=== PATIENT | female | born 1960 | race Hispanic/Latino ===

== ENCOUNTER 2020-07-17 06:01 | Inpatient (IN) | payer BC, OTHER ==
[2020-07-15 11:18] LABS: BASOPHILS % 0.5 % (0.0-1.0); EOSINOPHILS # (AUTO) 0.2 (0.0-0.4); EOSINOPHILS % 2.4 % (0.0-6.0); HEMATOCRIT 40.6 % (34.2-44.1); HEMOGLOBIN 13.3 g/dL (12.0-16.0); LYMPHOCYTES # (AUTO) 2.7 (1.0-3.2); LYMPHOCYTES % 30.9 % (18.0-39.1); MEAN CORPUSCULAR HEMOGLOBIN 28.9 pg (28-32); MEAN CORPUSCULAR HGB CONC 32.8 g/dL (31-35); MEAN CORPUSCULAR VOLUME 88.1 fL (81-99); MONOCYTES # (AUTO) 0.5 (0.2-0.8); MONOCYTES % 5.7 % (4.4-11.3); NEUTROPHILS # (AUTO) 5.2 (2.1-6.9); NEUTROPHILS % 60.2 % (38.7-80.0); PLATELET COUNT 299 x10e3/uL (140-360); RED BLOOD COUNT 4.61 x10e6/uL (3.6-5.1); RED CELL DISTRIBUTION WIDTH 13.4 % (11.7-14.4)
[2020-07-15 11:31] LABS: ANION GAP 14.3 mmol/L (8-16); BLOOD UREA NITROGEN 13 mg/dL (7-26); BUN/CREATININE RATIO 19 (6-25); CALCIUM 8.9 mg/dL (8.4-10.2); CARBON DIOXIDE 25 mmol/L (22-29); CHLORIDE 104 mmol/L (98-107); EST GLOMERULAR FILTRATION RATE > 60 ML/MIN (60-); GLUCOSE 111 mg/dL (74-118); POTASSIUM 4.3 mmol/L (3.5-5.1); SODIUM 139 mmol/L (136-145)
[~2020-07-17] VITALS: Ht 152.4 cm; Wt 113.4 kg
[~2020-07-17 06:01] MED LIST: LISINOPRIL2.5 MG PO; METFORMIN HCL500 MG PO; TRICOR145 MG PO; ZETIA10 MG PO
[2020-07-17] MEDS ORDERED: ACETAMINOPHEN 1000 MG/100 ML 100 ML IV ONE (08:26)
[2020-07-17] MEDS ORDERED: LIDOCAINE HCL (LTA) 4 ML SOLN ONE (08:26)
[2020-07-17] MEDS ORDERED: ONDANSETRON HCL INJ 2MG/ML 2ML 2 MG/ML VIAL ONE (11:27)
[2020-07-17] MEDS ORDERED: DEXAMETHASONE SOD PHOS INJ 4 MG/ML VIAL ONE (11:27)
[2020-07-17] MEDS ORDERED: POVIDONE IODINE 0.05% 0.05 % ML PO ONE (11:27)
[2020-07-17] MEDS ORDERED: LIDOCAINE HCL 2% LOCAL INJ 5 ML SDV VIAL INJ ONE (11:27)
[2020-07-17] MEDS ORDERED: LIDOCAINE HCL 2% JELLY 5 ML TUBE ONE (11:27)
[2020-07-17] MEDS ORDERED: ROCURONIUM BROMIDE 10 MG/ML 5ML VIAL IV ONE (11:27)
[2020-07-17] MEDS ORDERED: GLYCOPYRROLATE INJ 0.2 MG/ML VIAL ONE (11:27)
[2020-07-17] MEDS ORDERED: SEVOFLURANE INHAL SOLN 250 ML PEN BTL ONE (11:27)
[2020-07-17] MEDS ORDERED: NEOSTIGMINE 1 MG/ML 10ML VIAL ONE (11:27)
[2020-07-17] MEDS ORDERED: PROPOFOL IV EMULSION 10 MG/ML 20 ML VIAL ONE (11:27)
[2020-07-17] MEDS ORDERED: HYDROMORPHONE 1MG/1ML INJ ONE (12:30)
[2020-07-17] MEDS ORDERED: BUPIVACAINE 0.25% 30ML SDV ONE (13:17)
[2020-07-17] MEDS ORDERED: BUPIVACAINE LIPOSOME/PF 266 MG/20 ML IJ ONE (13:18)
[2020-07-17] MEDS ORDERED: SUGAMMADEX SODIUM 200 MG/2 ML VIAL IV ONE (14:23)
[2020-07-17] MEDS ORDERED: NALOXONE HCL INJ 0.4 MG/ML AMP IV PRN (14:30)
[2020-07-17] MEDS ORDERED: ONDANSETRON HCL INJ 2MG/ML 2ML 2 MG/ML VIAL IV PRN (14:30)
[2020-07-17] MEDS: HYDROMORPHONE 0.2MG/ML-SOD CHL 30ML PCA SYRINGE IV PRN (14:55)
[2020-07-17 16:13] VITALS: BP 105/56
[2020-07-17] MEDS ORDERED: DEXTROSE 50% SYRINGE 50 ML IV PRN (16:15)
[2020-07-17] MEDS: SODIUM CHLORIDE 0.9% 1000ML 1,000 ML IV SCH (16:45)
[2020-07-17] MEDS: SODIUM CHLORIDE 0.9% 250ML IRRIG IR SCH ×3 (16:45→22:30)
[2020-07-17] MEDS ORDERED: ACETAMINOPHEN 1000 MG/100 ML IV PRN (17:00)
[2020-07-17] MEDS: INSULIN REGULAR, HUMAN 100 UNIT/1 ML 3ML VIAL SQ SCH ×2 (18:00→23:49)
[2020-07-17] MEDS: PANTOPRAZOLE 40 MG 10ML VIAL IV SCH (18:18)
[2020-07-17] MEDS: CEFTRIAXONE 1 GM in SODIUM CHLORIDE 0.9% 50ML 50 ML IV SCH (18:18)
[2020-07-17 20:03] VITALS: BP 89/58
[2020-07-17 21:00] VITALS: BP 90/54
[2020-07-17 23:56] VITALS: BP 98/48
[2020-07-18] VITALS (8 sets, daily range): BP systolic 82–108; BP diastolic 45–57
[2020-07-18] MEDS: SODIUM CHLORIDE 0.9% 1000ML 1,000 ML IV SCH ×3 (03:07→22:03)
[2020-07-18] MEDS: SODIUM CHLORIDE 0.9% 250ML IRRIG IR SCH ×5 (03:07→22:30)
[2020-07-18] MEDS: HYDROMORPHONE 0.2MG/ML-SOD CHL 30ML PCA SYRINGE IV PRN ×2 (03:26→15:11)
[2020-07-18] MEDS: INSULIN REGULAR, HUMAN 100 UNIT/1 ML 3ML VIAL SQ SCH ×3 (05:29→18:00)
[2020-07-18 09:30] LABS: BASOPHILS % 0.3 % (0.0-1.0); EOSINOPHILS # (AUTO) 0.2 (0.0-0.4); EOSINOPHILS % 2.1 % (0.0-6.0); HEMATOCRIT 38.2 % (34.2-44.1); LYMPHOCYTES # (AUTO) 1.6 (1.0-3.2); LYMPHOCYTES % 14.3 % (18.0-39.1); MEAN CORPUSCULAR HEMOGLOBIN 28.7 pg (28-32); MEAN CORPUSCULAR HGB CONC 31.4 g/dL (31-35); MEAN CORPUSCULAR VOLUME 91.4 fL (81-99); MONOCYTES # (AUTO) 0.7 (0.2-0.8); MONOCYTES % 6.2 % (4.4-11.3); NEUTROPHILS # (AUTO) 8.7 (2.1-6.9); NEUTROPHILS % 76.7 % (38.7-80.0); PLATELET COUNT 284 x10e3/uL (140-360); RED BLOOD COUNT 4.18 x10e6/uL (3.6-5.1); RED CELL DISTRIBUTION WIDTH 14.1 % (11.7-14.4)
[2020-07-18 10:01] LABS: ANION GAP 14.1 mmol/L (8-16); BLOOD UREA NITROGEN 21 mg/dL (7-26); BUN/CREATININE RATIO 24 (6-25); CALCIUM 7.8 mg/dL (8.4-10.2); CARBON DIOXIDE 23 mmol/L (22-29); CHLORIDE 107 mmol/L (98-107); CREATININE, SERUM 0.88 mg/dL (0.57-1.11); EST GLOMERULAR FILTRATION RATE > 60 ML/MIN (60-); GLUCOSE 128 mg/dL (74-118); POTASSIUM 4.1 mmol/L (3.5-5.1); SODIUM 140 mmol/L (136-145)
[2020-07-18] MEDS: PANTOPRAZOLE 40 MG 10ML VIAL IV SCH (18:17)
[2020-07-18] MEDS: CEFTRIAXONE 1 GM in SODIUM CHLORIDE 0.9% 50ML 50 ML IV SCH (18:17)
[2020-07-19] VITALS (8 sets, daily range): BP systolic 109–122; BP diastolic 54–59
[2020-07-19] MEDS: SODIUM CHLORIDE 0.9% 250ML IRRIG IR SCH ×2 (02:30→06:30)
[2020-07-19] MEDS: HYDROMORPHONE 0.2MG/ML-SOD CHL 30ML PCA SYRINGE IV PRN (03:40)
[2020-07-19] MEDS: INSULIN REGULAR, HUMAN 100 UNIT/1 ML 3ML VIAL SQ SCH ×4 (05:26→18:00)
[2020-07-19] MEDS: SODIUM CHLORIDE 0.9% 1000ML 1,000 ML IV SCH ×2 (07:24→16:48)
[2020-07-19 09:19] LABS: BASOPHILS % 0.2 % (0.0-1.0); EOSINOPHILS # (AUTO) 0.3 (0.0-0.4); EOSINOPHILS % 2.7 % (0.0-6.0); HEMATOCRIT 35.4 % (34.2-44.1); HEMOGLOBIN 11.1 g/dL (12.0-16.0); LYMPHOCYTES # (AUTO) 1.2 (1.0-3.2); LYMPHOCYTES % 10.4 % (18.0-39.1); MEAN CORPUSCULAR HEMOGLOBIN 28.8 pg (28-32); MEAN CORPUSCULAR HGB CONC 31.4 g/dL (31-35); MEAN CORPUSCULAR VOLUME 91.9 fL (81-99); MONOCYTES # (AUTO) 0.7 (0.2-0.8); MONOCYTES % 5.9 % (4.4-11.3); NEUTROPHILS # (AUTO) 9.2 (2.1-6.9); NEUTROPHILS % 80.3 % (38.7-80.0); PLATELET COUNT 238 x10e3/uL (140-360); RED BLOOD COUNT 3.85 x10e6/uL (3.6-5.1); RED CELL DISTRIBUTION WIDTH 14.1 % (11.7-14.4)
[2020-07-19] MEDS ORDERED: BISACODYL 10 MG SUPP PR ONE (09:30)
[2020-07-19 09:39] LABS: ANION GAP 10.8 mmol/L (8-16); BLOOD UREA NITROGEN 12 mg/dL (7-26); BUN/CREATININE RATIO 19 (6-25); CALCIUM 7.8 mg/dL (8.4-10.2); CARBON DIOXIDE 25 mmol/L (22-29); CHLORIDE 109 mmol/L (98-107); CREATININE, SERUM 0.64 mg/dL (0.57-1.11); EST GLOMERULAR FILTRATION RATE > 60 ML/MIN (60-); GLUCOSE 127 mg/dL (74-118); POTASSIUM 3.8 mmol/L (3.5-5.1); SODIUM 141 mmol/L (136-145)
[2020-07-19] MEDS ORDERED: HYDROMORPHONE 1MG/1ML INJ IV PRN (15:30)
[2020-07-19] MEDS: CEFTRIAXONE 1 GM in SODIUM CHLORIDE 0.9% 50ML 50 ML IV SCH (16:50)
[2020-07-19] MEDS: PANTOPRAZOLE 40 MG 10ML VIAL IV SCH (16:50)
[2020-07-19] MEDS ORDERED: MAGNESIUM HYDROXIDE 30 ML UDC PO ONE (21:00)
[2020-07-20] VITALS (8 sets, daily range): BP systolic 119–143; BP diastolic 56–70
[2020-07-20] MEDS: SODIUM CHLORIDE 0.9% 1000ML 1,000 ML IV SCH ×2 (03:15→13:52)
[2020-07-20] MEDS: INSULIN REGULAR, HUMAN 100 UNIT/1 ML 3ML VIAL SQ SCH ×4 (06:00→18:00)
[2020-07-20 08:57] LABS: BASOPHILS % 0.2 % (0.0-1.0); EOSINOPHILS # (AUTO) 0.3 (0.0-0.4); EOSINOPHILS % 3.3 % (0.0-6.0); HEMOGLOBIN 11.7 g/dL (12.0-16.0); LYMPHOCYTES # (AUTO) 1.4 (1.0-3.2); LYMPHOCYTES % 14.2 % (18.0-39.1); MEAN CORPUSCULAR HEMOGLOBIN 28.3 pg (28-32); MEAN CORPUSCULAR HGB CONC 31.6 g/dL (31-35); MEAN CORPUSCULAR VOLUME 89.4 fL (81-99); MONOCYTES # (AUTO) 0.4 (0.2-0.8); MONOCYTES % 4.3 % (4.4-11.3); NEUTROPHILS # (AUTO) 7.6 (2.1-6.9); NEUTROPHILS % 77.6 % (38.7-80.0); PLATELET COUNT 261 x10e3/uL (140-360); RED BLOOD COUNT 4.14 x10e6/uL (3.6-5.1); RED CELL DISTRIBUTION WIDTH 13.5 % (11.7-14.4)
[2020-07-20 09:14] LABS: ANION GAP 11.7 mmol/L (8-16); BLOOD UREA NITROGEN 6 mg/dL (7-26); BUN/CREATININE RATIO 10 (6-25); CALCIUM 8.5 mg/dL (8.4-10.2); CARBON DIOXIDE 28 mmol/L (22-29); CHLORIDE 102 mmol/L (98-107); CREATININE, SERUM 0.63 mg/dL (0.57-1.11); EST GLOMERULAR FILTRATION RATE > 60 ML/MIN (60-); GLUCOSE 174 mg/dL (74-118); POTASSIUM 3.7 mmol/L (3.5-5.1); SODIUM 138 mmol/L (136-145)
[2020-07-20] MEDS: HYDROCODONE/APAP 7.5MG-325MG 1 EA TAB PO PRN ×3 (11:51→20:31)
[2020-07-20] MEDS: CEFTRIAXONE 1 GM in SODIUM CHLORIDE 0.9% 50ML 50 ML IV SCH (16:48)
[2020-07-20] MEDS: PANTOPRAZOLE 40 MG 10ML VIAL IV SCH (16:48)
[2020-07-21] VITALS: BP 125/60
[2020-07-21 00:21] VITALS: BP 140/56
[2020-07-21] MEDS: HYDROCODONE/APAP 7.5MG-325MG 1 EA TAB PO PRN ×3 (03:00→12:38)
[2020-07-21] MEDS: SODIUM CHLORIDE 0.9% 1000ML 1,000 ML IV SCH (03:11)
[2020-07-21 04:00] VITALS: BP 103/75
[2020-07-21] MEDS: INSULIN REGULAR, HUMAN 100 UNIT/1 ML 3ML VIAL SQ SCH ×3 (06:00→11:46)
[2020-07-21 07:35] VITALS: BP 152/74
[2020-07-21 09:23] VITALS: BP 152/74
[2020-07-21 11:28] VITALS: BP 147/67
== END 2020-07-21 14:35 | disposition home or self-care (01) | DRG 337 ==
LOC: OR 06:01 → PACU V 14:24 → MED/SURG 15:58
PROVIDERS: ADMIT Surgery; ATTEND Surgery
PROC: 0DNB0ZZ Release Ileum, Open Approach (ICD-10-PCS; 2020-07-17)
PROC: 0DN80ZZ Release Small Intestine, Open Approach (ICD-10-PCS; 2020-07-17)
PROC: 0WUF0JZ Supplement Abdominal Wall with Synthetic Substitute, Open Approach (ICD-10-PCS; principal; 2020-07-17 07:30)
DX: K43.6 Other and unspecified ventral hernia with obstruction, without gangrene (principal); Z20.822 Contact with and (suspected) exposure to COVID-19; I10 Essential (primary) hypertension; E78.5 Hyperlipidemia, unspecified; K21.9 Gastro-esophageal reflux disease without esophagitis
CPT/HCPCS: 36415; 80048; 82948; 85025; 88302; 93005; C1781; J0696; J1100; J1170; J1817; J2001; J2405; J2710; J7030

== ENCOUNTER → 2020-09-05 | Outpatient (CLI) | payer BC | LOC: WCC 12:50 | PROVIDERS: ATTEND Surgery | DX: T81.32XA Disruption of internal operation (surgical) wound, not elsewhere classified, initial encounter (principal); M96.89 Other intraoperative and postprocedural complications and disorders of the musculoskeletal system; E11.9 Type 2 diabetes mellitus without complications; I10 Essential (primary) hypertension; K45.8 Other specified abdominal hernia without obstruction or gangrene ==

== ENCOUNTER → 2020-09-09 | Outpatient (CLI) | payer BC | LOC: WCC 10:15 | PROVIDERS: ATTEND Surgery | DX: T81.32XA Disruption of internal operation (surgical) wound, not elsewhere classified, initial encounter (principal); M96.89 Other intraoperative and postprocedural complications and disorders of the musculoskeletal system; E11.9 Type 2 diabetes mellitus without complications; I10 Essential (primary) hypertension; K45.8 Other specified abdominal hernia without obstruction or gangrene ==

== ENCOUNTER → 2020-09-11 | Outpatient (CLI) | payer BC | LOC: WCC 09:01 | PROVIDERS: ATTEND Surgery | DX: T81.32XA Disruption of internal operation (surgical) wound, not elsewhere classified, initial encounter (principal); M96.89 Other intraoperative and postprocedural complications and disorders of the musculoskeletal system; E11.9 Type 2 diabetes mellitus without complications; K45.8 Other specified abdominal hernia without obstruction or gangrene; I10 Essential (primary) hypertension ==

== ENCOUNTER → 2020-09-17 | Outpatient (CLI) | payer BC | LOC: WCC 10:51 | PROVIDERS: ATTEND Surgery | DX: T81.32XA Disruption of internal operation (surgical) wound, not elsewhere classified, initial encounter (principal); M96.89 Other intraoperative and postprocedural complications and disorders of the musculoskeletal system; E11.9 Type 2 diabetes mellitus without complications; K45.8 Other specified abdominal hernia without obstruction or gangrene; I10 Essential (primary) hypertension ==

== ENCOUNTER → 2020-09-20 | Outpatient (CLI) | payer BC | LOC: WCC 08:23 | PROVIDERS: ATTEND Surgery | DX: T81.32XA Disruption of internal operation (surgical) wound, not elsewhere classified, initial encounter (principal); M96.89 Other intraoperative and postprocedural complications and disorders of the musculoskeletal system; E11.9 Type 2 diabetes mellitus without complications; I10 Essential (primary) hypertension; K45.8 Other specified abdominal hernia without obstruction or gangrene ==

== ENCOUNTER → 2020-09-24 | Outpatient (CLI) | payer BC | LOC: WCC 09:04 | PROVIDERS: ATTEND Surgery | DX: T81.32XA Disruption of internal operation (surgical) wound, not elsewhere classified, initial encounter (principal); M96.89 Other intraoperative and postprocedural complications and disorders of the musculoskeletal system; E11.9 Type 2 diabetes mellitus without complications; I10 Essential (primary) hypertension; K45.8 Other specified abdominal hernia without obstruction or gangrene ==

== ENCOUNTER → 2020-09-27 | Outpatient (CLI) | payer BC | LOC: WCC 08:47 | PROVIDERS: ATTEND Surgery | DX: T81.32XA Disruption of internal operation (surgical) wound, not elsewhere classified, initial encounter (principal); M96.89 Other intraoperative and postprocedural complications and disorders of the musculoskeletal system; E11.9 Type 2 diabetes mellitus without complications; K45.8 Other specified abdominal hernia without obstruction or gangrene; I10 Essential (primary) hypertension ==

== ENCOUNTER → 2020-10-01 | Outpatient (CLI) | payer BC | LOC: WCC 10:52 | PROVIDERS: ATTEND Surgery | DX: T81.32XA Disruption of internal operation (surgical) wound, not elsewhere classified, initial encounter (principal); M96.89 Other intraoperative and postprocedural complications and disorders of the musculoskeletal system; E11.9 Type 2 diabetes mellitus without complications; K45.8 Other specified abdominal hernia without obstruction or gangrene; I10 Essential (primary) hypertension ==

== ENCOUNTER → 2020-10-04 | Outpatient (CLI) | payer BC | LOC: WCC 09:15 | PROVIDERS: ATTEND Surgery | DX: T81.32XA Disruption of internal operation (surgical) wound, not elsewhere classified, initial encounter (principal); M96.89 Other intraoperative and postprocedural complications and disorders of the musculoskeletal system; E11.9 Type 2 diabetes mellitus without complications; K45.8 Other specified abdominal hernia without obstruction or gangrene; I10 Essential (primary) hypertension ==

== ENCOUNTER → 2020-10-08 | Outpatient (CLI) | payer BC | LOC: WCC 12:15 | PROVIDERS: ATTEND Surgery | DX: T81.32XA Disruption of internal operation (surgical) wound, not elsewhere classified, initial encounter (principal); M96.89 Other intraoperative and postprocedural complications and disorders of the musculoskeletal system; E11.9 Type 2 diabetes mellitus without complications; K45.8 Other specified abdominal hernia without obstruction or gangrene; I10 Essential (primary) hypertension ==

== ENCOUNTER → 2020-10-11 | Outpatient (CLI) | payer BC | LOC: WCC 09:45 | PROVIDERS: ATTEND Surgery | DX: T81.32XA Disruption of internal operation (surgical) wound, not elsewhere classified, initial encounter (principal); M96.89 Other intraoperative and postprocedural complications and disorders of the musculoskeletal system; E11.9 Type 2 diabetes mellitus without complications; K45.8 Other specified abdominal hernia without obstruction or gangrene; I10 Essential (primary) hypertension ==

== ENCOUNTER → 2020-10-15 | Outpatient (CLI) | payer BC | LOC: WCC 11:47 | PROVIDERS: ATTEND Surgery | DX: T81.32XA Disruption of internal operation (surgical) wound, not elsewhere classified, initial encounter (principal); M96.89 Other intraoperative and postprocedural complications and disorders of the musculoskeletal system; E11.9 Type 2 diabetes mellitus without complications; K45.8 Other specified abdominal hernia without obstruction or gangrene; I10 Essential (primary) hypertension ==

== ENCOUNTER → 2020-10-16 | Outpatient (CLI) | payer BC | LOC: WCC 11:15 | PROVIDERS: ATTEND Surgery | DX: T81.32XA Disruption of internal operation (surgical) wound, not elsewhere classified, initial encounter (principal); M96.89 Other intraoperative and postprocedural complications and disorders of the musculoskeletal system; E11.9 Type 2 diabetes mellitus without complications; I10 Essential (primary) hypertension; K45.8 Other specified abdominal hernia without obstruction or gangrene ==

== ENCOUNTER → 2020-10-18 | Outpatient (CLI) | payer BC | LOC: WCC 09:25 | PROVIDERS: ATTEND Surgery | DX: T81.32XA Disruption of internal operation (surgical) wound, not elsewhere classified, initial encounter (principal); M96.89 Other intraoperative and postprocedural complications and disorders of the musculoskeletal system; E11.9 Type 2 diabetes mellitus without complications; K45.8 Other specified abdominal hernia without obstruction or gangrene; I10 Essential (primary) hypertension ==

== ENCOUNTER → 2020-10-25 | Outpatient (CLI) | payer BC | LOC: WCC 10:54 | PROVIDERS: ATTEND Surgery | DX: T81.32XA Disruption of internal operation (surgical) wound, not elsewhere classified, initial encounter (principal); M96.89 Other intraoperative and postprocedural complications and disorders of the musculoskeletal system; E11.9 Type 2 diabetes mellitus without complications; I10 Essential (primary) hypertension; K45.8 Other specified abdominal hernia without obstruction or gangrene ==

== ENCOUNTER → 2020-10-29 | Outpatient (CLI) | payer BC | LOC: WCC 09:12 | PROVIDERS: ATTEND Surgery | DX: T81.32XA Disruption of internal operation (surgical) wound, not elsewhere classified, initial encounter (principal); M96.89 Other intraoperative and postprocedural complications and disorders of the musculoskeletal system; E11.9 Type 2 diabetes mellitus without complications; K45.8 Other specified abdominal hernia without obstruction or gangrene; I10 Essential (primary) hypertension ==

== ENCOUNTER → 2020-11-01 | Outpatient (CLI) | payer BC | LOC: WCC 09:57 | PROVIDERS: ATTEND Surgery | DX: T81.32XA Disruption of internal operation (surgical) wound, not elsewhere classified, initial encounter (principal); M96.89 Other intraoperative and postprocedural complications and disorders of the musculoskeletal system; E11.9 Type 2 diabetes mellitus without complications; K45.8 Other specified abdominal hernia without obstruction or gangrene; I10 Essential (primary) hypertension ==

== ENCOUNTER → 2020-11-05 | Outpatient (CLI) | payer BC | LOC: WCC 08:41 | PROVIDERS: ATTEND Surgery | DX: T81.32XA Disruption of internal operation (surgical) wound, not elsewhere classified, initial encounter (principal); M96.89 Other intraoperative and postprocedural complications and disorders of the musculoskeletal system; E11.9 Type 2 diabetes mellitus without complications; K45.8 Other specified abdominal hernia without obstruction or gangrene; I10 Essential (primary) hypertension ==

== ENCOUNTER → 2020-11-08 | Outpatient (CLI) | payer BC | LOC: WCC 09:15 | PROVIDERS: ATTEND Surgery | DX: T81.32XA Disruption of internal operation (surgical) wound, not elsewhere classified, initial encounter (principal); M96.89 Other intraoperative and postprocedural complications and disorders of the musculoskeletal system; E11.9 Type 2 diabetes mellitus without complications; K45.8 Other specified abdominal hernia without obstruction or gangrene; I10 Essential (primary) hypertension ==

== ENCOUNTER → 2020-11-12 | Outpatient (CLI) | payer BC | LOC: WCC 13:52 | PROVIDERS: ATTEND Surgery | DX: T81.32XA Disruption of internal operation (surgical) wound, not elsewhere classified, initial encounter (principal); M96.89 Other intraoperative and postprocedural complications and disorders of the musculoskeletal system; E11.9 Type 2 diabetes mellitus without complications; K45.8 Other specified abdominal hernia without obstruction or gangrene; I10 Essential (primary) hypertension ==

== ENCOUNTER → 2020-11-15 | Outpatient (CLI) | payer BC | LOC: WCC 11:31 | PROVIDERS: ATTEND Surgery | DX: T81.32XA Disruption of internal operation (surgical) wound, not elsewhere classified, initial encounter (principal); M96.89 Other intraoperative and postprocedural complications and disorders of the musculoskeletal system; E11.9 Type 2 diabetes mellitus without complications; K45.8 Other specified abdominal hernia without obstruction or gangrene; I10 Essential (primary) hypertension ==

== ENCOUNTER → 2020-11-19 | Outpatient (CLI) | payer BC | LOC: WCC 09:18 | PROVIDERS: ATTEND Surgery | DX: T81.32XA Disruption of internal operation (surgical) wound, not elsewhere classified, initial encounter (principal); M96.89 Other intraoperative and postprocedural complications and disorders of the musculoskeletal system; E11.9 Type 2 diabetes mellitus without complications; K45.8 Other specified abdominal hernia without obstruction or gangrene; I10 Essential (primary) hypertension ==

== ENCOUNTER → 2020-11-22 | Outpatient (CLI) | payer BC | LOC: WCC 08:38 | PROVIDERS: ATTEND Surgery | DX: T81.32XA Disruption of internal operation (surgical) wound, not elsewhere classified, initial encounter (principal); M96.89 Other intraoperative and postprocedural complications and disorders of the musculoskeletal system; E11.9 Type 2 diabetes mellitus without complications; K45.8 Other specified abdominal hernia without obstruction or gangrene; I10 Essential (primary) hypertension ==

== ENCOUNTER → 2020-11-26 | Outpatient (CLI) | payer BC | LOC: WCC 09:14 | PROVIDERS: ATTEND Surgery | DX: T81.32XA Disruption of internal operation (surgical) wound, not elsewhere classified, initial encounter (principal); M96.89 Other intraoperative and postprocedural complications and disorders of the musculoskeletal system; E11.9 Type 2 diabetes mellitus without complications; K45.8 Other specified abdominal hernia without obstruction or gangrene; I10 Essential (primary) hypertension ==

== ENCOUNTER → 2020-11-29 | Outpatient (CLI) | payer BC | LOC: WCC 09:46 | PROVIDERS: ATTEND Surgery | DX: T81.32XA Disruption of internal operation (surgical) wound, not elsewhere classified, initial encounter (principal); M96.89 Other intraoperative and postprocedural complications and disorders of the musculoskeletal system; E11.9 Type 2 diabetes mellitus without complications; K45.8 Other specified abdominal hernia without obstruction or gangrene; I10 Essential (primary) hypertension ==

== ENCOUNTER → 2020-12-03 | Outpatient (CLI) | payer BC | LOC: WCC 10:18 | PROVIDERS: ATTEND Surgery | DX: T81.32XA Disruption of internal operation (surgical) wound, not elsewhere classified, initial encounter (principal); M96.89 Other intraoperative and postprocedural complications and disorders of the musculoskeletal system; E11.9 Type 2 diabetes mellitus without complications; K45.8 Other specified abdominal hernia without obstruction or gangrene; I10 Essential (primary) hypertension ==

== ENCOUNTER → 2020-12-06 | Outpatient (CLI) | payer BC | LOC: WCC 09:57 | PROVIDERS: ATTEND Surgery | DX: T81.32XA Disruption of internal operation (surgical) wound, not elsewhere classified, initial encounter (principal); M96.89 Other intraoperative and postprocedural complications and disorders of the musculoskeletal system; E11.9 Type 2 diabetes mellitus without complications; K45.8 Other specified abdominal hernia without obstruction or gangrene; I10 Essential (primary) hypertension ==

== ENCOUNTER → 2020-12-10 | Outpatient (CLI) | payer BC | LOC: WCC 13:57 | PROVIDERS: ATTEND Surgery | DX: T81.32XA Disruption of internal operation (surgical) wound, not elsewhere classified, initial encounter (principal); M96.89 Other intraoperative and postprocedural complications and disorders of the musculoskeletal system; E11.9 Type 2 diabetes mellitus without complications; I10 Essential (primary) hypertension; K45.8 Other specified abdominal hernia without obstruction or gangrene ==

== ENCOUNTER → 2021-11-19 | Outpatient (CLI) | payer OTHER ==
[~2021-11-19] MED LIST changes: +DIATRIZOATE MEGL/DIATRIZOA SOD 30 ML BTL PO ONE; +IOPAMIDOL 370 MG/ML 100 ML INFUS..BTL INJ ONE
[2021-11-19 12:29] LABS: CREATININE, SERUM 0.7 mg/dL (0.57-1.11)
== END ==
LOC: CT 11:01
PROVIDERS: ATTEND Surgery
DX: L02.211 Cutaneous abscess of abdominal wall (principal)
CPT/HCPCS: 36415; 74177; 82565; 84520; Q9963; Q9967

== ENCOUNTER → 2023-12-24 | Outpatient (REF) | payer OTHER ==
[2023-12-24 13:41] LABS: CREATININE, SERUM 0.76 mg/dL (0.57-1.11)
== END ==
LOC: CT 12:37
PROVIDERS: ATTEND Surgery
DX: R07.89 Other chest pain (principal); R10.12 Left upper quadrant pain
CPT/HCPCS: 36415; 71046; 74160; 82565; 84520; Q9963; Q9967